=== PATIENT | female | born 1980 | race Caucasian/White ===

== ENCOUNTER → 2020-08-23 | Outpatient (CLI) | payer MEDICARE ==
[2020-08-23 20:25] LABS: IRON 26 ug/dL (50-170); TOTAL IRON BINDING CAPACITY 520 ug/dl (250-450)
[2020-08-23 20:51] LABS: FERRITIN 3.5 ng/mL (10.0-291.0)
[2020-08-25 02:06] LABS: TOTAL PROTEIN, SERUM 6.7 g/dL (6.0-8.5)
[2020-08-25 05:06] LABS: IMMUNOGLOBULIN G, QNT 908 mg/dL (586-1602); IMMUNOGLOBULIN M, QNT 52 mg/dL (26-217)
[2020-08-25 16:09] LABS: A/G RATIO 1.2 (0.7-1.7); ALBUMIN 3.7 g/dL (2.9-4.4); ALPHA-1-GLOBULIN 0.2 g/dL (0.0-0.4); ALPHA-2-GLOBULIN 0.8 g/dL (0.4-1.0); BETA GLOBULIN 1.1 g/dL (0.7-1.3); GAMMA GLOBULIN 0.9 g/dL (0.4-1.8); M-SPIKE Not Observed g/dL (Not Observed)
[2020-08-26 13:06] LABS: ALBUMIN, URINE 23.6 % (.); ALPHA-1-GLOBULIN, URINE 1.9 % (.); ALPHA-2-GLOBULIN, URINE 17.2 % (.); BETA GLOBULIN, URINE 35.2 % (.); GAMMA GLOBULIN, URINE 22.1 % (.); M-SPIKE, % Not Observed % (Not Observed); PROTEIN,TOTAL - URINE RANDOM 13.5 mg/dL (Not Estab.)
== END | disposition home or self-care (01) ==
LOC: LAB 18:44
PROVIDERS: ATTEND Nurse Practitioner Primary Care
DX: D64.9 Anemia, unspecified (principal); R53.82 Chronic fatigue, unspecified; M25.50 Pain in unspecified joint

== ENCOUNTER 2021-07-16 22:24 | Emergency (ER) | payer MEDICARE ==
[2021-07-16 23:04] LABS: BASO % 0.3 % (0.0-1.0); EOS % 0.2 % (1.0-4.0); HEMATOCRIT 37.1 % (37.0-47.0); LYMPH # 0.9 10*3/uL (1.3-4.4); LYMPH % 8.2 % (27.0-41.0); MEAN CELL VOLUME 85.1 fl (81.0-99.0); MEAN CORPUSCULAR HGB 28.4 pg (27.0-31.0); MEAN CORPUSCULAR HGB CONC 33.4 g/dl (33.0-37.0); MEAN PLATELET VOLUME 9.5 fl (9.6-12.3); MONO # 0.5 10*3/uL (0.1-1.0); MONO % 4.5 % (3.0-9.0); NEUT # 9.7 10*3/uL (2.3-7.9); NEUT % 86.4 % (47.0-73.0); PLATELET COUNT AUTOMATED 370 10*3/uL (130-400); RED BLOOD COUNT 4.36 10*6/uL (4.10-5.10); WHITE BLOOD COUNT 11.2 10*3/uL (4.8-10.8)
[2021-07-16 23:21] LABS: ALKALINE PHOSPHATASE 71 U/L (45-117); BUN 8 mg/dl (7-24); CHLORIDE 111 mmol/L (98-107); CREATININE 0.75 mg/dL (0.55-1.02); LIPASE 69 U/L (73-393); POTASSIUM 3.7 mmol/L (3.5-5.1); SGOT/AST 8 IU/L (3-35); SGPT/ALT 14 U/L (12-78); SODIUM 142 mmol/L (136-145); TOTAL PROTEIN 6.7 gm/dL (6.4-8.2)
[2021-07-16 23:35] LABS: BILIRUBIN Negative (Negative); BLOOD Negative (Negative); CLARITY Cloudy (Clear); COLOR Yellow (Yellow); GLUCOSE Negative (Negative); KETONE Trace (Negative); LEUKO ESTERASE Trace (Negative); NITRITE Negative (Negative); SPECIFIC GRAVITY >= 1.030 (1.001-1.030)
[2021-07-16 23:48] LABS: BACTERIA 1+; EPITHELIAL CELLS 41-50
[2021-07-17] MEDS ORDERED: ZOFRAN4 MG PO (00:19)
== END 2021-07-17 00:22 | disposition home or self-care (01) ==
LOC: ED 22:24
PROVIDERS: Internal Medicine
DX: K52.9 Noninfective gastroenteritis and colitis, unspecified (principal)

== ENCOUNTER 2022-09-09 16:08 | Emergency (ER) | payer MEDICARE ==
[~2022-09-09] VITALS: Ht 165.1 cm; Wt 65.8 kg
[~2022-09-09 16:08] MED LIST: VALTREX1000 MG PO; ZOFRAN4 MG PO
[2022-09-09] MEDS ORDERED: ZOLPIDEM TART12.5 MG PO (16:28)
[2022-09-09] MEDS ORDERED: LAMOTRIGINE200 MG PO (16:29)
[2022-09-09] MEDS ORDERED: FLUOXETINE HCL40 MG PO (16:29)
[2022-09-09] MEDS ORDERED: SPRINTEC 35 MCG1 TA1 PO (16:30)
[2022-09-09] MEDS ORDERED: LORAZEPAM1 MG PO (16:30)
[2022-09-09] MEDS ORDERED: MIRALAX POWDER17 G1 PO (17:21)
[2022-09-09] MEDS ORDERED: ONDANSETRON4 MG SL (18:02)
== END 2022-09-09 18:23 | disposition home or self-care (01) ==
LOC: ED 16:08
DX: K59.00 Constipation, unspecified (principal); Z88.6 Allergy status to analgesic agent; Z79.899 Other long term (current) drug therapy

== ENCOUNTER → 2022-09-21 | Outpatient (CLI) | payer MEDICARE ==
[~2022-09-21] MED LIST changes: +FLUOXETINE HCL40 MG PO; +LAMOTRIGINE200 MG PO; +LORAZEPAM1 MG PO; +MIRALAX POWDER17 G1 PO; +ONDANSETRON4 MG SL; +SPRINTEC 35 MCG1 TA1 PO; +ZOLPIDEM TART12.5 MG PO
== END | disposition home or self-care (01) ==
LOC: ORTHO 00:11
PROVIDERS: ATTEND Orthopaedic Surgery
DX: M17.0 Bilateral primary osteoarthritis of knee (principal); M25.462 Effusion, left knee

== ENCOUNTER → 2023-12-11 | Outpatient (CLI) | payer MEDICARE ==
[2023-12-11 13:55] LABS: HEMATOCRIT 35.4 % (37.0-47.0); MEAN CELL VOLUME 80.5 fl (81.0-99.0); MEAN CORPUSCULAR HGB 25.5 pg (27.0-31.0); MEAN CORPUSCULAR HGB CONC 31.6 g/dl (33.0-37.0); MEAN PLATELET VOLUME 9.3 fl (9.6-12.3); RED BLOOD COUNT 4.4 10*6/uL (4.10-5.10); RED CELL DISTRI WIDTH 14.6 % (0-14.5); WHITE BLOOD COUNT 7.1 10*3/uL (4.8-10.8)
[2023-12-11 14:28] LABS: ALKALINE PHOSPHATASE 83 U/L (46-116); BUN 8 mg/dl (9-23); CHLORIDE 108 mmol/L (98-107); CHOLESTEROL 212 mg/dL (<200); FREE T4 1.13 ng/dl (0.89-1.76); LDL CHOLESTEROL 122 mg/dL (9-159); POTASSIUM 4.1 mmol/L (3.4-5.1); TRIGLYCERIDES 185 mg/dl (<150); VITAMIN D, 25-HYDROXY 48.9 ng/mL (30-100)
[2023-12-11 14:30] LABS: SGPT/ALT < 7 U/L (5-49)
[2023-12-12 06:09] LABS: HBSAG Negative (Negative); HEP B CORE AB, IGM Negative (Negative); HEPATITIS C ANTIBODY Non Reactive (Non Reactive)
[2023-12-12 12:08] LABS: ANTI-DSDNA ANTIBODIES 2 IU/mL (0-9)
== END | disposition home or self-care (01) ==
LOC: LAB 13:23
PROVIDERS: ATTEND Family Medicine
DX: K59.00 Constipation, unspecified (principal); E55.9 Vitamin D deficiency, unspecified; R63.4 Abnormal weight loss; M25.50 Pain in unspecified joint; K58.9 Irritable bowel syndrome, unspecified; Z90.49 Acquired absence of other specified parts of digestive tract

== ENCOUNTER 2024-04-10 17:49 | Emergency (ER) | payer MEDICARE ==
[~2024-04-10] VITALS: Ht 170.1 cm; Wt 79.4 kg
[2024-04-10] MEDS ORDERED: SODIUM CHLORIDE 0.9% 1,000 ML IV ONE (17:55)
[2024-04-10] MEDS ORDERED: fentaNYL CITRATE/PF 50 MCG/ML SYRINGE IV ONE (17:55)
[2024-04-10] MEDS ORDERED: Ondansetron Hydrochloride 4 MG/2 ML VIAL IV ONE (17:55)
[2024-04-10] MEDS ORDERED: SODIUM CHLORIDE 0.9% 100 ML BAG IV ONE (18:00)
[2024-04-10] MEDS ORDERED: IOHEXOL 350 MG/ML 100 ML VIAL IV ONE (18:00)
[2024-04-10 18:09] LABS: BASO # 0.1 10*3/uL (0.0-0.1); BASO % 0.9 % (0.0-1.0); EOS # 0.2 10*3/uL (0.0-0.4); EOS % 3.2 % (1.0-4.0); HEMATOCRIT 35.5 % (37.0-47.0); MEAN CELL VOLUME 82.4 fl (81.0-99.0); MEAN CORPUSCULAR HGB 25.8 pg (27.0-31.0); MEAN CORPUSCULAR HGB CONC 31.3 g/dl (33.0-37.0); MEAN PLATELET VOLUME 9.5 fl (9.6-12.3); MONO # 0.5 10*3/uL (0.1-1.0); MONO % 7.9 % (3.0-9.0); NEUT # 4.2 10*3/uL (2.3-7.9); NEUT % 60.6 % (47.0-73.0); PLATELET COUNT AUTOMATED 297 10*3/uL (130-400); RED BLOOD COUNT 4.31 10*6/uL (4.10-5.10); RED CELL DISTRI WIDTH 14.8 % (0-14.5); WHITE BLOOD COUNT 6.9 10*3/uL (4.8-10.8)
[2024-04-10 18:38] LABS: BUN 7 mg/dl (9-23); CHLORIDE 108 mmol/L (98-107); POTASSIUM 3.8 mmol/L (3.4-5.1)
[2024-04-10] MEDS ORDERED: MEDROL DOSEPAK4 MG PO (21:06)
== END 2024-04-10 21:22 | disposition home or self-care (01) ==
LOC: ED 17:49
PROVIDERS: Emergency Medicine
DX: M54.2 Cervicalgia (principal); R13.10 Dysphagia, unspecified; I10 Essential (primary) hypertension; F41.9 Anxiety disorder, unspecified; F32.A Depression, unspecified; Z88.6 Allergy status to analgesic agent